=== PATIENT | male | born 1990 | race Caucasian/White ===

== ENCOUNTER 2017-10-03 09:07 | Emergency (ER) | payer SELFPAY ==
[~2017-10-03] VITALS: Ht 172.7 cm; Wt 83.9 kg
[2017-10-03 09:07] VITALS: BP_SYST 148
[2017-10-03 09:26] VITALS: BP_SYST 148
== END 2017-10-03 09:26 | disposition home or self-care (01) ==
LOC: SED 09:07
DX: S02.5XXA Fracture of tooth (traumatic), initial encounter for closed fracture (principal); K02.9 Dental caries, unspecified; K04.7 Periapical abscess without sinus; F17.200 Nicotine dependence, unspecified, uncomplicated; X58.XXXA Exposure to other specified factors, initial encounter; Y93.89 Activity, other specified; Y92.89 Other specified places as the place of occurrence of the external cause; Y99.8 Other external cause status
CPT/HCPCS: 99283